=== PATIENT | female | born 1965 | race Caucasian/White ===

== ENCOUNTER → 2016-05-16 | Outpatient (CLI) | payer BC ==
[~2016-05-16] MED LIST: FLNIN NAE; SYN50 PO; [UNRECOGNIZED DRUG - REMARK]
[2016-05-16 18:13] LABS: THYROID STIMULATING HORMONE 0.105 uIu/ml (0.300-4.500)
== END | disposition home or self-care (01) ==
LOC: C.LAB1850 16:09
PROVIDERS: ATTEND Internal Medicine
DX: E03.9 Hypothyroidism, unspecified (principal)

== ENCOUNTER → 2016-11-19 | Outpatient (CLI) | payer BC ==
--- NOTE | 2016-11-20 12:47 | MAMMOGRAPHY REPORT ---
BILATERAL DIGITAL SCREENING MAMMOGRAM TOMOSYNTHESIS WITH CAD: 11/19/2016 CLINICAL HISTORY: Routine screening. Patient has no complaints. TECHNIQUE: Breast tomosynthesis in addition to standard 2D mammography was performed. Current study was also evaluated with a Computer Aided Detection (CAD) system. COMPARISON: No prior exams were available for comparison. BREAST COMPOSITION: There are scattered areas of fibroglandular density in both breasts. FINDINGS: No suspicious mass, architectural distortion or cluster of microcalcifications is seen. IMPRESSION: ACR BI-RADS CATEGORY 1: NEGATIVE There is no mammographic evidence of malignancy. A 1 year screening mammogram is recommended. The pa tient will receive written notification of the results. Approximately 10% of breast cancers are not detected with mammography. A negative mammographic report should not delay biopsy if a clinically suggestive mass is present. Juana huynh/crhistina:11/19/2016 13:50:20 [employer]: Yvette FRANKLIN(Andrew)(Karissa)(COLLIN), [facility] letter sent: Normal 1/2 BI-RADS Code: ACR BI-RADS Category 1: Negative
== END | disposition home or self-care (01) ==
LOC: C.MAMM 13:16
PROVIDERS: ATTEND Internal Medicine
DX: Z12.31 Encounter for screening mammogram for malignant neoplasm of breast (principal)

== ENCOUNTER 2023-10-06 08:46 | Observation (INO) ==
--- NOTE | 2023-09-16 10:27 | PAT Medication Instructions ---
Medication Instructions Date of Service September 16, 2023 Home Medications Medication Instructions Recorded diclofenac sodium 1 % topical gel 2 g topical QID PRN left knee pain 01/09/22 #100 grams tramadol 50 mg tablet 50 mg PO Q12H PRN Pain #60 tabs 12/23/22 levothyroxine 112 mcg capsule 112 mcg PO QAM #90 caps 06/30/23 olopatadine 0.1 % eye drops 1 drp ophthalmic (eye) BID PRN 07/16/23 Allergy Symptoms #5 mL estradiol 2 mg (7.5 mcg/24 hour) 1 vag ring vaginal Q90D #1 ea 08/12/23 vaginal ring (Estring) fluticasone propionate 50 mcg/actuation nasal spray,suspension (Flonase Allergy Relief) 2 spray intranasal QAM calcium citrate 200 mg (950 mg) tablet 400 mg PO PM cholecalciferol (vitamin D3) 25 mcg (1,000 unit) tablet (Vitamin D3) 1,000 unit PO PM multivitamin 1 tab PO DAILY econazole 1 % topical cream 1 applic topical BID PRN diclofenac sodium 1 % topical gel 2 g topical QID PRN semaglutide (weight loss) 0.5 mg/0.5 mL subcutaneous pen injector (Wegovy) 2.4 mg subcut Q7D tramadol 50 mg tablet 50 mg PO Q12H PRN levothyroxine 112 mcg capsule 112 mcg PO QAM olopatadine 0.1 % eye drops 1 drp ophthalmic (eye) BID PRN estradiol 2 mg (7.5 mcg/24 hour) vaginal ring (Estring) 1 vag ring vaginal Q90D zolpidem 5 mg tablet 5 mg PO HS PRN STOP 7 days before surgery semaglutide (weight loss) 0.5 mg/0.5 mL subcutaneous pen injector (Wegovy) 2.4 mg subcut Q7D ASK your prescriber and surgeon estradiol 2 mg (7.5 mcg/24 hour) vaginal ring (Estring) 1 vag ring vaginal Q90D STOP taking 24 hours before surgery econazole 1 % topical cream 1 applic topical BID PRN diclofenac sodium 1 % topical gel 2 g topical QID PRN DO NOT take the morning of surgery multivitamin 1 tab PO DAILY Take morning of surgery With a small sip of water, OTHERWISE NOTHING TO EAT OR DRINK AFTER MIDNIGHT: fluticasone propionate 50 mcg/actuation nasal spray,suspension (Flonase Allergy Relief) 2 spray intranasal QAM tramadol 50 mg tablet 50 mg PO Q12H PRN(if needed) olopatadine 0.1 % eye drops 1 drp ophthalmic (eye) BID PRN(if needed) levothyroxine 112 mcg capsule 112 mcg PO QAM Take evening before surgery calcium citrate 200 mg (950 mg) tablet 400 mg PO PM cholecalciferol (vitamin D3) 25 mcg (1,000 unit) tablet (Vitamin D3) 1,000 unit PO PM tramadol 50 mg tablet 50 mg PO Q12H PRN(if needed) olopatadine 0.1 % eye drops 1 drp ophthalmic (eye) BID PRN(if needed) zolpidem 5 mg tablet 5 mg PO HS PRN(if needed) Other Notes If you have any questions please call us at [phone] or [phone] or [phone] or [phone]
--- NOTE | 2023-09-22 11:13 | Anesthesiology Consultation ---
Date of Service September 22, 2023 Assessment & Plan (1) Encounter for pre-operative examination: Chart Review Chart Review: Acceptable Risk for Surgery and Patient seen in Pre Admission Testing Pt currently scheduled as 23 hours observation. If surgeon decides to change patient to Same Day Joint, patient would be acceptable risk for TKA, pending patient is motivated, has good support and surgeon's office completes [facility] Program preop requirements. - Wegovy instructions: Patient takes on (Thu/). Patient informed at PAT visit to stop 7 days prior to surgery- voiced understanding. Patient's last dose of Wegovy will be 09/23/23 or 09/24/23- will be off Wegovy x 12-13 days by DOS on 10/06/23 Per PAT appt on 09/22/23, no recent illness/disease exposures, illness related symptoms, or recent illness/disease positive tests. Will leave to surgeon's discretion if preop Covid testing needed Patient seen by PCP 09/22/23= " Patient presents today for preoperative clearance for upcoming total right knee replacement. Laboratory workup and urinalysis is unremarkable with the exception of some microscopic blood in her urine. Chest x- ray was unremarkable. EKG shows normal sinus rhythm. Vital signs are stable. The patient is medically stable as she can be for upcoming right total knee replacement." Teaching & Discussion Pre-Anesthesia Teaching/Discussion Notes: Instructed NPO after midnight before surgery,except medications with 15 cc of water. Medication instructions provided according to the PAT guidelines. History Surgery Operation Date: 10/06/23 07:00 Proposed Procedures p Right Total Knee Arthroplasty - Bhaskar Adriana Shepherd MD Height/Weight Height: 5 ft 4 in Weight: 100.3 kg Allergies Allergy/AdvReac Type Severity Reaction Status Date / Time animal dander Allergy Intermediate Sneezing Verified 09/22/23 08:57 grass pollen Allergy Intermediate Sneezing Verified 09/22/23 08:57 house dust Allergy Intermediate Sneezing Verified 09/22/23 08:57 No Known Drug Allergies Allergy Intermediate Verified 09/22/23 08:57 Medications Home Medications Medication Instructions Recorded Confirmed Last Taken fluticasone propionate 50 2 spray intranasal QAM 07/02/18 09/22/23 10/25/20 07:00 mcg/actuation nasal spray,suspension (Flonase Allergy Relief) calcium citrate 200 mg (950 mg) 400 mg PO PM 09/24/18 09/22/23 10/23/20 tablet cholecalciferol (vitamin D3) 25 1,000 unit PO PM 09/24/18 09/22/23 10/23/20 mcg (1,000 unit) tablet (Vitamin D3) multivitamin 1 tab PO DAILY 09/24/18 09/22/23 10/23/20 econazole 1 % topical cream 1 applic topical BID PRN Rash 10/19/20 09/22/23 Unknown diclofenac sodium 1 % topical gel 2 g topical QID PRN left knee pain 01/09/22 09/22/23 Unknown #100 grams semaglutide (weight loss) 0.5 2.4 mg subcut Q7D 07/10/22 09/22/23 Unknown mg/0.5 mL subcutaneous pen injector (Wegovy) tramadol 50 mg tablet 50 mg PO Q12H PRN Pain #60 tabs 12/23/22 09/22/23 Unknown levothyroxine 112 mcg capsule 112 mcg PO QAM #90 caps 06/30/23 09/22/23 Unknown olopatadine 0.1 % eye drops 1 drp ophthalmic (eye) BID PRN 07/16/23 09/22/23 Unknown Allergy Symptoms #5 mL estradiol 2 mg (7.5 mcg/24 hour) 1 vag ring vaginal Q90D #1 ea 08/12/23 09/22/23 Unknown vaginal ring (Estring) zolpidem 5 mg tablet 5 mg PO HS PRN Insomnia 09/07/23 09/22/23 Unknown Past Medical History Medical History Chronic venous insufficiency S/p GSV radiofrequency vein ablation of right leg No current issues History of COVID-19 (03/2023) mild, resolved Hx of insomnia Hyperlipemia slightly, no meds Hypothyroidism Osteoarthritis right knee Sleep apnea mouthguard Exercise / Class Metabolic Activity II 4-5 Yardwork/Stairs/Walk up hill (one flight of stairs - no chest pain or SOB ) Past Family History Family History Mother Family history of diabetes mellitus Coronary arteriosclerosis Obesity Thyroid cancer Myocardial infarction Father Lymphoma Grandmother (Maternal) Uterine cancer Ovarian cancer Grandfather (Maternal) Parkinson disease Uncle Myocardial infarction Other Malignant melanoma of skin No family history of adverse response to anesthesia Denies family history of Prostate cancer Breast cancer Colorectal cancer Past Surgical History Surgical History History of esophagogastroduodenoscopy (EGD) History of gastric bypass gastric sleeve placed 02/2016 History of tonsillectomy History of varicose vein ligation GSV radiofrequency vein ablation of right leg History of wisdom tooth extraction S/P skin biopsy benign Status post LASIK surgery of both eyes Status post myringotomy with tube placement of both ears as a child Past Anesthesia History No Hx of Anesthesia Complications and No Family Hx of Anesthesia Complications History of PONV No Hx of PONV and No Hx of Motion Sickness Social History Smoking Status: Never smoker Do You Dip or Chew Tobacco: No Hx Alcohol Use: Yes Alcohol type: wine alcohol intake frequency: holidays/special occasions only Hx Substance Use: No substance use type: does not use Review of Systems Patient denies chest pain, shortness of breath, dyspnea on exertion, reflux, cough, wheezing, palpitations. No hx of seizures, stroke, [place]. No hx of blood clots or blood transfusions Physical Exam Vital Signs VITALS BP 115/78 P 75 TEMP 97.9 SP02 98% RESP 16 Constitutional no acute distress ENMT Mouth: + small oral opening; no TMJ clicking Thyromental Distance: > or= 3.5 Finger Breadths (3.5) Mallampati Class: IV Top front six teeth- veneers Neck neck extension not limited Respiratory normal respiratory effort; no respiratory distress Auscultation: lungs clear to auscultation bilaterally; no wheezes Cardiovascular Rate/Rhythm: regular rate and regular rhythm Heart Sounds: no murmur Vessels: no carotid bruit Musculoskeletal Spine: no pain with cervical ROM Extremities: extremities normal to inspection Psychiatric Orientation: alert Lab Results Anesthesia Preop Results Results Anesthesia Widget: WBC 6.29 K/ul (4.8-10.8) 09/22/23 Hgb 13.7 g/dl (12.0-16.0) 09/22/23 Hct 42.5 % (37.0-47.0) 09/22/23 Plt 293 K/uL (130-400) 09/22/23 Na 140 mmol/L (136-145) 09/22/23 K 3.9 mmol/L (3.5-5.1) 09/22/23 Cl 104 mmol/L (98-107) 09/22/23 CO2 30 mmol/L (21-32) 09/22/23 BUN 18 mg/dl (6-23) 09/22/23 Creat 0.68 mg/dl (0.6-1.2) 09/22/23 Glucose Level 90 mg/dl (70-99(Fasting)) 09/22/23 PT 10.7 Seconds (9.0-12.0) 09/22/23 PTT 27 Seconds (21-31) 09/22/23 INR 1.0 (0.9-1.1) 09/22/23 Urine Color Yellow 09/22/23 Urine Appearance Clear (Clear) 09/22/23 Urine pH 6.5 (4.5-7.5) 09/22/23 Urine Specific [place] 1.025 (1.000-1.030) 09/22/23 Urine Protein Negative (Negative) 09/22/23 Urine Glucose (UA) Negative (Negative) 09/22/23 Urine Ketones Negative (Negative) 09/22/23 Urine Blood 1+ (Negative) H 09/22/23 Urine Nitrite Negative (Negative) 09/22/23 Urine Bilirubin Negative (Negative) 09/22/23 Urine Urobilinogen Negative (Negative) 09/22/23 Urine Leukocyte Esterase Negative (Negative) 09/22/23 Urine WBC (Auto) 0-5 /hpf (0-5) 09/22/23 Urine RBC (Auto) 11-20 /hpf (0-2) H 09/22/23 Urine Hyaline Casts (Auto) 0-2 /lpf (0-2) 09/22/23 Urine Epithelial Cells (Auto) 3-5 /hpf (0-2) H 09/22/23 Urine Bacteria (Auto) None Seen (None Seen) 09/22/23 Blood Type B Positive 09/22/23 Antibody Screen NEGATIVE 09/22/23 Testing Electrocardiogram Date: 09/22/23 Findings: + NSR @ (70bpm ) Normal EKG per cardio Chest X-Ray Date: 09/22/23 Findings: + NAD FINDINGS: PA and lateral chest radiographs are compared to study dated 05/13/2021. The cardiomediastinal silhouette is unremarkable. The lungs and pleural spaces are clear. There is no pneumothorax. The bony thorax appears intact.
[~2023-10-06 08:46] MED LIST changes: +BUPIVACAINE 0.5 % 5 MG/1 ML PF 10ML VIAL ONE; -FLNIN NAE; +LIDOCAINE 2% 2 ML VIAL/AMP(20MG/ML) INFIL ONE; +MIDAZOLAM HCL 1 MG/ML 2ML VIAL ONE; +PROPOFOL IV EMULSION 10 MG/ML 20 ML VIAL IV ONE; +ROPIVACAINE 0.5% 5 MG/ML 30 ML VIAL ONE; -SYN50 PO; -[UNRECOGNIZED DRUG - REMARK]; +fentaNYL citrate PF 100 MCG/2 ML VIAL ONE
[2023-10-06] MEDS: ACETAMINOPHEN 500 MG TAB PO SCH ×2 (09:10→14:59)
[2023-10-06] MEDS: Scopolamine 1 MG TDSY TD SCH (09:10)
[2023-10-06] MEDS: CeleBREX 200 MG CAP PO SCH (09:10)
[2023-10-06] MEDS: LR 500ML BOLUS, THEN 15ML/HR IV SCH (09:10)
[2023-10-06] MEDS: LR 60ML/HR IV SCH (09:28)
--- NOTE | 2023-10-06 09:44 | History & Physical Bridge Note ---
Date of Service October 06, 2023 History & Physical Bridge Note I have examined the patient, reviewed the History & Physical and in the interval since the performance of the History & Physical I have noted the following changes of clinical significance: no changes noted
[2023-10-06] MEDS: TRANEXAMIC ACID 1,000 MG **IV Pre-op IV SCH (10:08)
[2023-10-06] MEDS: ceFAZolin 2000MG 2,000 MG/15 ML SYR IV SCH ×2 (10:24→17:37)
[2023-10-06] MEDS ORDERED: ONDANSETRON INJ 2 MG/ML 2 ML VIAL IV PRN ×2 (10:28→12:55)
[2023-10-06] MEDS ORDERED: PROMETHAZINE HCL 6.25 MG in SODIUM CHLORIDE 0.9% 50 ML IV PRN (10:28)
[2023-10-06] MEDS ORDERED: ePHEDrine sulfate 50 MG/ML AMP IV PRN (10:28)
[2023-10-06] MEDS ORDERED: HYDROmorphone INJ 2 MG/ML SYR/VIAL IV PRN (10:28)
[2023-10-06] MEDS ORDERED: ATROPINE SULFATE 0.1 MG/ML 10ML SYR IV PRN (10:28)
[2023-10-06] MEDS ORDERED: fentaNYL citrate PF 100 MCG/2 ML VIAL IV PRN (10:28)
[2023-10-06] MEDS ORDERED: PROPOFOL IV EMULSION 10 MG/ML 20 ML VIAL IV ONE ×3 (10:43→12:18)
--- OUTSIDE RECORDS SUMMARY | 2023-10-06 10:52 | External Medical Summary | Continuity of Care Document ---
Author Name Unknown Organization [place] [id number] Address [address] [place] [id number] Care Team Providers Care Streaming Media Specialist Name Role Phone Rodrigo Primary Care Physician [phone] Encounter [facility] [id number] Date(s): 09/22/23 - 09/22/23 [facility] [address] [place] [id number] [facility] [address] [place] [address] Encounter Diagnosis DJD (degenerative joint disease) of knee(Discharge Diagnosis) - 09/22/23 Discharge Disposition: Home or Self Care Attending Physician: MIHAI Baez, Farideh Morales Referring Physician: MD Cora, Bhaskar A Allergies, Adverse Reactions, Alerts No Known Medication Allergies Substance Criticality Severity Reaction Reaction Severity Status Animal dander Active Allergy Not found in Search 1 Active 1seasonal allergies- superintendent transmission jv Medications B-12 Start: 07/08/23 2:05:00 PM EDT, b 12 injection every 3 months had today Start Date: 07/08/23 Status: Ordered calcium citrate Start: 02/26/21 11:18:00 AM EST, PO, Daily Start Date: 02/26/21 Status: Ordered Euflexxa 10 mg/mL intra-articular solution Start: 02/12/23 10:07:00 AM EDT, 20 mg =, intra-articular, q7days, Disp# 12 mL, Refills: 0, 6 syringes for B/L knees. Please ship to physician's office: [address] [facility]. [address] [address], Note to Pharmacy: B/L KNEE DJD M17.0, Pharmacy: [facility] Start Date: 02/12/23 Stop Date: 03/05/23 Status: Ordered Flintstones Complete oral tablet, chewable Start: 02/26/21 11:18:00 AM EST, 1 tab, PO, Daily Start Date: 02/26/21 Status: Ordered Flonase 50 mcg/inh nasal spray Start: 02/26/21 11:18:00 AM EST, 2 spray, each nostril, Daily Start Date: 02/26/21 Status: Ordered levothyroxine 112 mcg (0.112 mg) oral tablet Start: 02/26/21 11:17:00 AM EST, 1 tab, PO, Daily Start Date: 02/26/21 Status: Ordered traMADol Start: 02/26/21 11:17:00 AM EST, PO, as needed Start Date: 02/26/21 Status: Ordered Wegovy (1 mg dose) subcutaneous solution Start: 07/17/22 3:57:00 PM EDT Start Date: 07/17/22 Status: Ordered Mental Status 09/22/23 Barriers to Learning one year None evide nt Mandatory Health Literacy Documentation Yes Health Literacy Communication Barriers N ever Primary Language Liberian Problem List Condition Confirmation Course Effective Dates Status H ealth Status Informant Allergic rhinitis Confirmed Active Anesthesia complication 1 Confirmed Active Thyroid disease Confirmed Active Hypothyroidism Confirmed Active Knee DJD 2 Confirmed Active Knee pain 3 Confirmed Active Morbid Obesity Confirmed Active Right knee pain Confirmed Active Pes anserinus bursitis of left knee Confirmed Active Plantar fasciitis Confirmed Active Apnea, sleep Confirmed Active Weight disorder Confirmed Active 1family history 2right 3right Diagnosis Diagnosis Type Effective Dates Health Status Cl inical Service Informant DJD (degenerative joint disease) of knee Discharge Diagnosis 09/22/23 Procedures Procedure Date Related Diagnosis Body Site Status LASIK 2008 Completed Tooth extraction 1 1988 Comple nichelle Tonsillectomy 2 1971 Completed Gastric sleeve Completed 1wisdom teeth 2age 6 Vital Signs Most recent to oldest [Reference Range]: 1 Height 162.0 cm (09/22/23 10:03 AM) Patient Weight 99.9 kg (09/22/23 10:03 AM) Body Mass Index 38.07 kg/m2 (09/22/23 10:03 AM) Temperature [36.5-37.9 DegC] 36.1 DegC *LOW* (09/22/23 10:03 AM) Respiratory Rate 20 br/min (09/22/23 10:03 AM) Blood Pressure 110/70mmHg (09/22/23 10:03 AM) Cuff Pulse Pressure 40 mmHg (09/22/23 10:03 AM) Social History Social History Type Response Smoking Status Never smoked cigaret sharon Sex Female Pre-OP H & P * MIHAI Baez, Farideh Morales: PERFORM Event Display: Pre-OP H & P Authored Date: [id number] Name:MASON SIMPSON Patient Number:[id number] :1965 Date of Service:09/22/2023 Chief Complaint pre op History of Present Illness Beatriz Peguero presents today forpreoperative history and physical. She is scheduled for right total knee arthroplasty on October 06, [address] Shepherd. She hashad many years worth of right knee pain. She states that she has pain on a daily basis. She haspain at rest and at night. Her pain is worse with activity. She has taken vgdl-xkp-[id number] anti-inflammatories as well as Tylenol without any significant long-lasting relief. She has had cortisone injection with her last 1 being in December 2022. She also has had completed viscosupplementation series in March 2023. 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 She has pain with going up and down stairs. She lives by herself and has a two-story home. She feels that she would like to go home to an inpatient rehab at time of discharge from the hospital. Today her pain is 0 out of 10 on the right knee. She also has left knee pain. She uses no assistive device for ambulation. Due to her failure of conservative treatment andprogressively worsening symptoms, she would like to proceed with an elective right total knee arthroplasty. Review of Systems Denies any recent cough, cold, fevers, chills or flulike symptoms. She denies any lightheadedness, dizziness, syncopal episodes, headaches, migraines or seizures. Denies any bleeding or clotting disorders or history of DVT or pulmonary embolism. Denies any recent hospitalizations. Denies any history of metal sensitivity, latex allergy or MRSA. Denies any shortness of breath or chest pain. Denies abdominal pain, heartburn, indigestion, nausea, vomiting, diarrhea or constipation. Denies any urinary tract infections. Denies any hearing or vision changes. Denies any dental problems. Physical Exam Vitals & Measurements T:36.1C RR:20 BP:110/70 SpO2:98% HT:162.0cm WT:99.9kg WT:99.900kg(Dosing) BMI:38.07 BMI:38.07 kg/m2 Vitals:Last Updated 09/22/23 10:03 Date Temp BP Location Pulse RR SpO2 Pain 09/22/23 36.1 110/70 20 98 09/22/23 0 07/08/23 3 Height and Weight:Last Updated 09/22/23 10:03 Date BMI Wt(kg) Wt(lb) Method Ht(cm) (ft-in) Method 09/22/23 38.07 99.9 220 Standing Scale 162.0 5-4 07/02/23 39.9 106 233 Standing Scale 163 5-4 02/26/21 42.1 116 255 Scale 166 5-5 General:Well-dressed, well-nourished. Normal mood and affect. Alert and oriented x3. HEENT:Head: Atraumatic, normocephalic. Eyes: Extraocular movements intact, pupils equal round and reactive to light, sclera normal. Ears: Ears grossly normal, TMs are clear normal light reflex.Nose: Nares are patent bilaterally. Throat: Oropharynx clear mucous membranes moist good dentition uvula midline. Neck:Supple, no lymphadenopathy, nontender palpation, full range of motion. Cardiac:Regular rate and rhythm, normal S1, S2. No murmurs, rubs or gallops appreciated. Lungs:Clear to auscultation bilaterally. No adventitious sounds. No accessory muscle use. Abdomen:Soft, nontender, nondistended, normal bowel sounds heard in all 4 quadrants. Extremities: Focusing on the patient'sbilateral lower extremity: 2+ DP pulse Sensation to light touch is intact Motor to the gastroc soleus, tibialis anterior, and EHL is 5/5. Able to perform straight leg raise. RIGHT: - Janice's + Crepitus Ligamentous examination exhibits: Stable Sade 0 mm anterior translation and firm endpoint Posterior drawer stable Varus stress at 0 and 30 stable Valgus stress at 0 and 30 stable Range of motion 0 to 110 LEFT: + Medialjoint line tenderness. -Janice's Ligamentous examination exhibits: Stable Sade 0 mm anterior translation and firm endpoint Posterior drawer stable Varus stress at 0 and 30 stable Valgus stress at 0 and 30 stable Range of motion 0 to 110 Diagnostic Results I reviewed x-rays done previously which showsno acute fracture or dislocation.There is significant loss of joint space with now near efbz-vw-aqlq, sclerosis, subchondral cyst, and marginal osteophytes. 7 degrees varus alignment on the right 3 degrees varus alignment on the left. Assessment/Plan 1.DJD (degenerative joint disease) of knee Patient is scheduled for right total knee arthroplasty with Dr. Shepherd on October 06, 2023. Risk and complications of the procedure were explained to the patient and include but are not limited to infection, pain, bleeding, scarring, nerve or blood vessel damage, wound problems, weakness, stiffness, incomplete relief of symptoms, hardware failure, hardware loosening, wear, fracture, tendon or ligament injury, blood clots, embolisms, heart attack, stroke and . All questions were answered and informed consent was obtained today. She will preadmission testing later this morning which she will obtain a preoperative CBC, BMP, PT, PTT, type and screen, urinalysis and culture if indicated, EKG, chest x-ray. She will also have preoperative medical clearance from her family physician. Postoperatively she will be given pain medication at the time of discharge from the hospital. She would like to go to inpatient rehab from the hospital which we will try to get approved but if not she will need to go home with home health and also have someone stay with her for the first week or so after surgery. She has a walker that she is able to borrow from her friend. If she wishes to get her own walker she will call and we can prescribe this and send a prescription to DME supplier. We will use Eliquis 2.5 mg p.o. twice daily for 6 weeks after surgery for DVT prophylaxis. She hasher appointment to follow-up on postoperative day 3 for a Silverlon dressing if she does not go to an inpatient rehab. She also will follow-up with one of the PAs is scheduled for a 2-week follow-up and Zipline removal. She understands and agrees with the plan. All questions were answered. Postoperative course was discussed. She was instructed on the usage of the CHG wipes. She knows to call with any further problems, questions or concerns. All questions were answered today. This chart was completed utilizing [employer] voice recognition software. Grammatical errors, random word insertions, pronoun errors, and in complete sentences are an occasional consequence of the system. Any questions or concerns about the content, text, or information contained within the body of this dictation should be addressed directly to the provider for clarification. Problem List/Past Medical History Ongoing Allergic rhinitis Anesthesia complication Apnea, sleep Hypothyroidism Knee DJD Morbid Obesity Pes anserinus bursitis of left knee Plantar fasciitis Thyroid disease Weight disorder Procedure/Surgical History LASIK| Service Date: 2008Tooth extraction| Service Date: 1988Tonsillectomy| Service Date: 1971Gastric sleeve Medications Home calcium citrate, PO, Daily cyanocobalamin(B-12) fluticasone nasal(Flonase 50 mcg/inh nasal spray), 2 spray, each nostril, Daily levothyroxine(levothyroxine 112 mcg (0.112 mg) oral tablet), 112 mcg= 1 tab, PO, Daily multivitamin with minerals(Flintstones Complete oral tablet, chewable), 1 tab, PO, Daily semaglutide(Wegovy (1 mg dose) subcutaneous solution) sodium hyaluronate(Euflexxa 10 mg/mL intra-articular solution), 20 mg, intra- articular, q7days traMADol, PO Allergies Allergy Not found in Search Animal dander No Known Medication Allergies Social History Smoking Status Never smoked cigarettes Alcohol - Low Risk - Comments: 1 per week Substance Abuse - Denies Substance Abuse Tobacco - Denies Tobacco Use Family History Cancer: Unknown. Diabetes: Unknown. Lymphoma: Father. Obesity: Mother, Father and Sister. Thyroid cancer: Mother. Electronic Signature on File Electronically Reviewed/Signed by: Farideh Baez PA-C Author Signature Dt/Tm:09/22/2023 04:16PM Division of Sports Medicine Electronically Reviewed/Signed by: Bhaskar Shepherd MD Cosigner Signature Dt/Tm: 09/23/2023 08:25 AM [facility] Sales Process Manager Department of Orthopaedics and Rehabilitation [facility] [address], [place] [address] [facility] Patient Care team information Care Team Personnel Name: Pro, MD, Rodrigo W Position: Referring DIRECT Member Role: Primary Care Provider Address: Address: [facility] [address] [facility] [address] [place] [id number] [place] Name: Marianne, PhD, Dick Position: Physician - General Surg Psych Member Role: Lifetime Relationship Address: Address: [address] [place] [id number] [place] Care Team Related Persons Name: JOVAN SIMPSON Address: home No Address Provided"
--- OUTSIDE RECORDS SUMMARY | 2023-10-06 10:52 | External Medical Summary | Continuity of Care Document ---
Author Name Unknown Organization [place] [id number] Address [address] [place] [phone] Care Team Providers Care Drawing In Machine Tender Helper Name Role Phone Rodrigo Primary Care Physician [phone] Encounter [facility] [id number] Date(s): 09/22/23 - 09/22/23 [facility] [address] [place] [id number] [facility] [address] [place] [id number] Encounter Diagnosis DJD (degenerative joint disease) of knee(Discharge Diagnosis) - 09/22/23 Discharge Disposition: Home or Self Care Attending Physician: MIHAI Baez, Farideh Morales Referring Physician: MD Cora, Bhaskar A Allergies, Adverse Reactions, Alerts No Known Medication Allergies Substance Criticality Severity Reaction Reaction Severity Status Animal dander Active Allergy Not found in Search 1 Active 1seasonal allergies- exploration driller jv Medications B-12 Start: 07/08/23 2:05:00 PM [...] knees. Please ship to physician's office: [address] [facility]. [address] [address], Note to Pharmacy: B/L KNEE DJD M17.0, Pharmacy: [facility] Start Date: 02/12/23 Stop Date: 03/05/23 Status: [...] Literacy Communication Barriers N ever Primary Language Niuean Problem List Condition Confirmation Course Effective Dates [...] Display: Pre-OP H & P Authored Date: [id number] Name:MASON SIMPSON Patient Number:[id number] :1965 Date of Service:09/22/2023 Chief Complaint pre op History of Present Illness Beatriz ePguero presents today forpreoperative history and physical. She is scheduled for right total knee arthroplasty on October 06, [address] Shepherd. She hashad many years worth of right knee pain. She states that she has pain on a daily basis. She haspain at rest and at night. Her pain is worse with activity. She has taken wofl-xln-bnkklcc anti-inflammatories as well as Tylenol without any [...] loss of joint space with now near qgzp-wj-rpre, sclerosis, subchondral cyst, and marginal osteophytes. 7 [...] answered today. This chart was completed utilizing [employer] voice recognition software. Grammatical errors, random word [...] MD Cosigner Signature Dt/Tm: 09/23/2023 08:25 AM [facility] D[facility] [place] Department of Orthopaedics and Rehabilitation [facility] [address], [place] [address] [facility] Patient Care team information Care Team Personnel Name: Pro, MD, Rodrigo W Position: Referring DIRECT Member Role: Primary Care Provider Address: Address: [facility] [address] [facility] [address] [place] [address] [place] Name: Marianne, PhD, Dick Position: Physician - General Surg Psych Member Role: Lifetime Relationship Address: Address: [address] [place] [address] [place] Care Team Related Persons Name: JOVAN SIMPSON Address: home No Address Provided"
[2023-10-06] MEDS ORDERED: ONDANSETRON INJ 2 MG/ML 2 ML VIAL ONE (11:51)
[2023-10-06] MEDS ORDERED: DEXAMETHASONE SOD INJ 4 MG/ML VIAL ONE (11:51)
[2023-10-06] MEDS: ROPIV 0.5% 246mg, Ketorolac 30mg, EPINEPHrine 0.5mg in NSS INFIL SCH (11:52)
[2023-10-06] MEDS: TRANEXAMIC ACID 1,000 MG **IV Intra-op IV SCH (12:08)
--- NOTE | 2023-10-06 12:31 | Post Operative Brief Note ---
Immediate Post Op Note Date of Surgery October 06, 2023 Pre & Post Diagnosis Operation Date: 10/06/23 10:20 Pre-Op Diagnosis: Right Knee Osteoarthritis Post-Op Diagnosis: Right Knee Osteoarthritis I identified the patient and participated in the time-out.: Yes Procedure Operation Date: 10/06/23 10:20 Actual Procedures p Right Total Knee Arthroplasty(Right) - Bhaskar Shepherd MD Surgeon Bhaskar Shepherd MD Terminal Operations Supervisor MIRIAN Dumas PA-C (No fellow avail) Estimated Blood Loss 50 Findings Consistent with Post-Op Diagnosis Fluids 1300 cc Specimens Right knee contents Anesthesia Type MAC Spinal Regional Complications none
--- NOTE | 2023-10-06 12:32 | Operative Report ---
Post Operative Report Pre & Post Diagnosis Operation Date: 10/06/23 10:20 Pre-Op Diagnosis: Right Knee Osteoarthritis Post-Op Diagnosis: Right Knee Osteoarthritis I identified the patient and participated in the time-out.: Yes Procedure Operation Date: 10/06/23 10:20 Actual Procedures p Right Total knee replacement, imageless computer assisted navigation (Right) - Bhaskar Shepherd MD Surgeon Bhaskar Shepherd MD Wafer Production Lead Worker MIRIAN Dumas PA-C (No fellow avail) Estimated Blood Loss 50 Findings See Below Examined Under Anesthesia: ROM -- There was 5 degrees to 120 degrees of flexion Ligamentous examination -- revealed stable Sade, posterior drawer, varus and valgus stress at 5 and 30 degrees. Outerbridge Grade IV changes of patellofemoral & medial compartments, grade III changes lateral compartment. Large osteophytes. Fluids 1300 cc Specimens Right knee contents Anesthesia Type MAC Spinal Regional Complications none Indications This is a 57-year-old female who has clinical and radiographic findings consistent with osteoarthritis of the a right knee. I recommended that a right total knee replacement be performed. The patient understands the risks of surgery, which include but not limited to: bleeding, infection, re-operation, damage to nerves and arteries, continued knee pain, knee stiffness, DVT, and . The patient understands all of these instructions and explanations, all of his questions have been satisfactorily addressed and the patient has elected to proceed. Informed consent was signed. Description of Procedure IMPLANTS: 1. Femur: Triathlon #5 Right PS. 2. Tibia: Triathlon #4 Stevinson. 3. Insert: Triathlon #4 x 13 mm PS X3 poly. 4. Patella: Triathlon A32 x 10 mm X3 poly. 5.Palacos cement. MIRIAN Dumas PA-C is assisting with positioning, retracting, and closure due to fellow not available. Procedure: The patient was taken to the Operating Room and placed in the supine position after spinal and adductor canal nerve block was administered. My initials and a multidisciplinary time-out were used to identify the right leg as the correct operative limb. A tourniquet was placed high in the thigh. Prior to the incision, 2 grams of intravenous Ancef were given. The right leg was then prepped and draped in a standard sterile fashion. An Esmarch was used to exsanguinate the leg and the tourniquet was inflated to 250 mmHg. The planned mid-line 20 cm incision was created exposing the extensor mechanism. The medial parapatellar arthrotomy was made and the patella was everted. The patella was addressed first. It was prepared by reaming from 24 mm down to 14 mm. An A32 button was found to fit best. The peg holes were made in the standard fashion. The femur was addressed next and using computer assisted OrthoAlign with 3 degrees of flexion and 0 degrees of valgus, removing 10 mm in the standard fashion for the distal cut. The cut was made and the 4-in-1 cutting block for a size 5 femur was placed. These cuts and the cuts to place the box were made in the standard fashion. Our attention was then drawn to the tibia cut with using imageless computer assisted OrthoAlign, taking 2 mm from the medial low side. There was sufficient extension and flexion gap to fit a 13 mm spacer. A #4 Tibial baseplate fit well. A trial with a 13 mm spacer showed excellent stability in both flexion and extension, with good ligament balance, and thumbs free patellar tracking. Range of motion of 0-125 degrees. The tibial baseplate was prepped for the keel and stem. All components were removed.90 ml of total knee cocktail were injected into the soft tissues and periosteum. All surfaces were copiously irrigated prior to placement of the components. The femoral component followed by Tibial baseplate were cemented in place and a 13mm trial placed. Next, the patellar button was placed using the same cement. Once the cement had cured, the range of motion and stability were unchanged. The 13 mm X3 poly was placed. Again, the range of motion and stability were unchanged. The tourniquet was deflated. Hemostasis was obtained. The extensor mechanism was closed with 1-0 Vicryl and 0 Stratafix with the knee bent approximately 60 degrees in a standard fashion. The peritenon and deep fascia was closed with 2-0 Vicryl. The subcutaneous layer was closed with 3-0 Vicryl. The skin was closed with Zipline and shield. The limb was cleaned and dried. 4x4 dressing was placed over top followed by ABDs, sterile Webril, and a foot to thigh Marcus bandage. The patient was then transferred to the Recovery Room in stable condition. The sponge and needle counts were correct. POST-OP INSTRUCTIONS: The patient will be WBAT. The patient will be admitted to the hospital. Complete 24-hour course antibiotics. Labs will be obtained during the stay. DVT prophylaxis will included Eliquis2.5 mg BID for 6 weeks, TEDs, and mechanical foot pumps. The dressing will be changed postop day #2-3 and covered with a Silverlon dressing. I attest to the content of the Intraoperative Record and any orders documented therein. Any exceptions are noted below.
--- NOTE | 2023-10-06 12:54 | Operative Report ---
Post Operative Report Pre & Post Diagnosis Operation Date: 10/06/23 10:20 Pre-Op Diagnosis: Right Knee Osteoarthritis Post-Op Diagnosis: Right Knee Osteoarthritis I identified the patient and participated in the time-out.: Yes Procedure Operation Date: 10/06/23 10:20 Actual Procedures p Right Total Knee Arthroplasty(Right) - Bhaskar Shepherd MD Surgeon Bhaskar Shepherd MD Spin Table Operator MIRIAN Dumas PA-C (No fellow avail) Estimated Blood Loss 50 Findings Consistent with Post-Op Diagnosis Specimens Right knee bone and soft tissue Description of Procedure I was present during the entire case assisting with positioning, prepping, draping, wound retraction, wound closure, and dressing application. No fellow present. Please see Dr. Shepherd procedure note for specifics of the case. I attest to the content of the Intraoperative Record and any orders documented therein. Any exceptions are noted below.
[2023-10-06] MEDS ORDERED: MAGNESIUM HYDROXIDE SUSP 30 ML UDC PO PRN (12:55)
[2023-10-06] MEDS ORDERED: bisacodyL 10 MG SUPP PR PRN (12:55)
[2023-10-06] MEDS ORDERED: HYDROmorphone INJ 0.5 MG/0.5 ML SYR IV PRN (12:55)
[2023-10-06] MEDS ORDERED: traMADol HCL 50 MG TABLET PO PRN ×2 (12:55→12:58)
[2023-10-06] MEDS ORDERED: ALUMINUM/MAGNESIUM SUSP 30 ML UDC PO PRN (12:55)
[2023-10-06] MEDS ORDERED: diphenhydrAMINE 50 MG/ML VIAL IV PRN (12:55)
[2023-10-06] MEDS ORDERED: NALOXONE HCL 0.4 MG/1 ML VIAL/CARP IV PRN (12:55)
[2023-10-06] MEDS ORDERED: METOCLOPRAMIDE HCL INJ 5 MG/ML 2 ML VIAL IV PRN (12:55)
[2023-10-06] MEDS ORDERED: ZOLPIDEM TARTRATE 5 MG TAB PO PRN (12:58)
[2023-10-06] MEDS ORDERED: ECONAZOLE NITRATE 1% CRM 15 GM TUBE TOP PRN (12:58)
--- NOTE | 2023-10-06 13:39 | Anesthesiology Progress Note ---
Date of Service October 06, 2023 Anesthesia Post Procedure Vital Signs Vital Signs: Temp Pulse Pulse Resp BP BP Pulse Ox 10/06/23 13:35 36.4 C L 72 17 115/72 95 10/06/23 13:25 70 16 114/69 95 10/06/23 13:15 69 15 112/68 96 10/06/23 13:05 70 19 114/69 96 10/06/23 12:54 36.3 C L 74 19 106/72 98 10/06/23 09:02 36.6 C 75 20 126/76 98 O2 Del Method 10/06/23 13:35 Room Air 10/06/23 13:25 Room Air 10/06/23 13:15 Room Air 10/06/23 13:05 Room Air 10/06/23 12:54 Room Air 10/06/23 09:02 Room Air Transfer of Care Handoff Completed per policy Notes Mental Status: alert / awake / arousable and participated in evaluation Patient Amnestic to Procedure: Yes Nausea / Vomiting: adequately controlled Pain: adequately controlled Airway Patency, RR, SpO2: stable & adequate BP & HR: stable & adequate Hydration State: stable & adequate Anesthetic Complications: no major complications apparent and Pt Satisfied with anesthetic care
--- NOTE | 2023-10-06 13:42 | XRay Report ---
XR knee RT 1 or 2V routine CLINICAL HISTORY: Surgical Post Op TECHNIQUE: 2 views of the right knee were obtained. Comparison: Comparison is made to knee radiographs 11/11/2022 FINDINGS: Patient is status post total knee arthroplasty with expected postsurgical changes including soft tiss ue swelling and subcutaneous emphysema. No periarticular lucency or hardware fracture is seen. IMPRESSION: Expected postoperative appearance status post placement of total knee arthroplasty. ACT 112: Negative or not required by law. Electronically signed by: Luis Alfredo Bee M.D. 10/06/2023 1:41 PM
[2023-10-06] MEDS: ORTHO JOINT ANESTHETIC ONE (14:24)
[2023-10-06] MEDS: SODIUM CHLORIDE 0.9% 1,000 ML IV SCH (15:02)
[2023-10-06] MEDS: APIXABAN 2.5 MG TAB PO SCH (15:36)
--- NOTE | 2023-10-06 15:53 | Orthopedic Progress Note ---
Date of Service October 06, 2023 Assessment & Plan (1) Osteoarthritis of knee: Plan: POD #0 s/p R TKA, doing as well as expected. Resume diet. WBAT with walker. OOB to chair. Continue pain control. Check labs tomorrow. DVT prophylaxis: TEDs 3 weeks, foot pumps while in hospital, Eliquis 2.5 mg BID for 6 weeks. PT/OT. D/C planning. Plan on changing dressing to Silverlon POD 2-3. Present on Admission?: Yes Admission and Anticipated Discharge Date Admission Date: October 06, 2023 Subjective Patient states that, "It's weird to not feel my leg". Physical Exam Physical Exam: RLE: BCR < 2 sec. Sensation to light touch diminished distally. Wiggling toes. Calf soft and non-tender. Dressing is clean, dry, intact. Results & Data Vital Signs (Past 12 Hours) Vital Signs Temp Pulse Pulse Resp BP BP Pulse Ox 10/06/23 15:32 36.5 C 74 16 111/74 97 10/06/23 14:58 36.9 C 75 18 111/77 97 10/06/23 14:30 36.5 C 70 18 115/79 95 10/06/23 14:20 77 18 128/71 95 10/06/23 14:05 76 16 109/71 97 10/06/23 13:50 74 19 109/70 95 10/06/23 13:35 36.4 C L 72 17 115/72 95 10/06/23 13:25 70 16 114/69 95 10/06/23 13:15 69 15 112/68 96 10/06/23 13:05 70 19 114/69 96 10/06/23 12:54 36.3 C L 74 19 106/72 98 10/06/23 09:02 36.6 C 75 20 126/76 98 O2 Del Method 10/06/23 15:32 Room Air 10/06/23 14:58 Room Air 10/06/23 14:30 Room Air 10/06/23 14:20 Room Air 10/06/23 14:05 Room Air 10/06/23 13:50 Room Air 10/06/23 13:35 Room Air 10/06/23 13:25 Room Air 10/06/23 13:15 Room Air 10/06/23 13:05 Room Air 10/06/23 12:54 Room Air 10/06/23 09:02 Room Air Diagnostic Findings Impressions Knee X-Ray 10/06/23 12:55 XR knee RT 1 or 2V routine CLINICAL HISTORY: Surgical Post Op TECHNIQUE: 2 views of the right knee were obtained. Comparison: Comparison is made to knee radiographs 11/11/2022 FINDINGS: Patient is status post total knee arthroplasty with expected postsurgical changes including soft tissue swelling and subcutaneous emphysema. No periarticular lucency or hardware fracture is seen. IMPRESSION: Expected postoperative appearance status post placement of total knee arthroplasty. ACT 112: Negative or not required by law. Electronically signed by: Luis Alfredo Bee M.D. 10/06/2023 1:41 PM
[2023-10-06] MEDS: NON-FORMULARY MEDICATION (Estradiol [Estring] 2 mg (7.5 mcg /24 hour) ring) PV SCH (16:36)
[2023-10-06] MEDS: [UNRECOGNIZED DRUG - OTHER] SQ SCH (16:36)
[2023-10-06] MEDS: SEMAGLUTIDE 0.5 MG/0.5 ML SQ SCH (16:36)
[2023-10-06] MEDS: KETOROLAC TROMETHAMINE 15 MG/ML VIAL IV SCH (17:36)
[2023-10-06] MEDS: Scopolamine CHECK PATCH PLACEMENT SCH (17:37)
[2023-10-06] MEDS: oxyCODONE HCL IR 5 MG TAB (IMMEDIATE RELEASE) PO PRN (18:10)
[2023-10-06] MEDS ORDERED: CALCIUM CITRATE PO SCH (21:00)
[2023-10-06] MEDS: DOCUSATE SODIUM 100 MG CAP PO SCH (21:35)
[2023-10-06] MEDS: CHOLECALCIFEROL 25 MCG (1000 UNITS) TAB PO SCH (21:36)
[2023-10-06] MEDS: SENNA 8.6 MG TAB PO SCH (21:37)
[2023-10-07] MEDS: LEVOTHYROXINE SODIUM 112 MCG TABLET PO SCH (05:27)
[2023-10-07] MEDS ORDERED: APIXABAN 2.5 MG TAB PO SCH (08:00)
--- NOTE | 2023-10-07 08:11 | Orthopedic Progress Note ---
Date of Service October 07, 2023 Assessment & Plan (1) Osteoarthritis of knee: Plan: POD #1 s/p R TKA, doing as well as expected. Resume diet. WBAT with walker. OOB to chair. Continue pain control. Check labs, still pending. DVT prophylaxis: TEDs 3 weeks, foot pumps while in hospital, Eliquis 2.5 mg BID for 6 weeks. PT/OT. D/C planning for home if passes PT. Plan on changing dressing to Silverlon POD 2-3. Admission and Anticipated Discharge Date Admission Date: October 06, 2023 Subjective Feeling as good as can be expected. Feeling in her leg has returned. Has been able to get up and go to the bathroom. Physical Exam Physical Exam: RLE: BCR < 2 sec. Sensation to light touch intact distally. Wiggling toes. Calf soft and non-tender. Dressing is clean, dry, intact. Results & Data Vital Signs (Past 12 Hours) Vital Signs Temp Pulse Resp BP Pulse Ox O2 Del Method 10/07/23 07:26 Room Air 10/07/23 07:17 36.6 C 68 18 108/74 99 Room Air 10/07/23 03:29 36.6 C 76 16 106/72 97 Room Air 10/06/23 22:48 36.7 C 81 16 116/75 96 Room Air Laboratory Results 10/07/23 Range/Units 07:58 WBC Pending RBC Pending Hgb Pending Hct Pending MCV Pending MCH Pending MCHC Pending Plt Count Pending Sodium Pending Potassium Pending Chloride Pending Carbon Dioxide Pending Anion Gap Pending BUN Pending Creatinine Pending Est Cr Clr Drug Dosing Pending Est GFR ( Amer) Pending Est GFR (Non-Af Amer) Pending BUN/Creatinine Ratio Pending Glucose Pending Calcium Pending
[2023-10-07 08:16] LABS: Hematocrit (blood only) 36.4 % (37.0-47.0); Hemoglobin 11.8 g/dl (12.0-16.0); Mean Corpuscular Hemoglobin 29.6 pg (25.0-34.0); Mean Corpuscular Hgb Conc 32.4 g/dL (32.0-36.0); Mean Corpuscular Volume 91.5 fL (80.0-100.0); Mean Platelet Volume 10.3 fL (9.4-12.4); Platelet Count 241 K/uL (130-400); RDW Standard Deviation 43.6 fL (36.4-46.3); Red Blood Count 3.98 M/uL (4.20-5.40); White Blood Count 9.75 K/ul (4.8-10.8)
[2023-10-07 08:38] LABS: BUN Creatinine Ratio 22.5 (10-20); Calcium 8.7 mg/dl (8.6-10.3); Creatinine Clr Calc Pharmacy 101.5 ml/min; Est GFR (African American) 110.4 ml/min; Est GFR (Non-African American) 95.2 ml/min
[2023-10-07] MEDS ORDERED: ASPIRIN 81 MG ECTAB PO SCH (09:00)
[2023-10-07] MEDS ORDERED: MULTIVITAMIN TAB PO SCH (09:00)
[2023-10-07] MEDS: FLUTICASONE PROPIONATE NA SPR 16 GM BTL NAE SCH (09:06)
[2023-10-07] MEDS: dexAMETHasone 4 MG TAB PO SCH (09:08)
[2023-10-07] MEDS: MULTIVITAMIN TAB PO SCH (09:09)
--- NOTE | 2023-10-07 11:57 | Discharge Summary ---
Date of Service October 07, 2023 Discharge Data Procedures Performed Operation Date: 10/06/23 10:20 Actual Procedures p Right Total Knee Arthroplasty(Right) - Bhaskar Shepherd MD Hospital Course (1) Osteoarthritis of knee: Patient was kept in observation at [facility] after undergoing an elective right total knee arthroplasty with Dr. Shepherd on October 06, 2023. Her surgery was performed with spinal anesthesia and a peripheral nerve block. She tolerated the procedure well without any intraoperative complications. Postoperatively in the recovery room an x-ray of her right knee was obtained and showed no evidence of hardware failure or complication. No evidence of fracture. Findings consistent with total knee arthroplasty. She was allowed out of bed, weight-bear as tolerated on her right lower extremity with the assistance of a walker. She was given oxycodone, Tylenol, Toradol and IV Dilaudid to use as needed for postoperative pain. She her home medications were continued. She was given a regular diet. Her vital signs remained stable during her inpatient stay. She did not develop any postoperative nausea, vomiting, lightheadedness or dizziness, chest pain or shortness of breath. Physical therapy and Occupational Therapy consults were placed. She was seen on postoperative day 1 and was deemed safe for discharge to her home. Her postoperative labs were within normal limits and expected post total knee arthroplasty. She was given Eliquis 2.5 mg p.o. twice daily for 6 weeks postoperative for DVT prophylaxis along with knee-high ANJEL stockings for 3 weeks and AV impulse boots while in house. Discharge instructions were reviewed. Postoperative appointments have been made. She understands and agrees with the plan. She was discharged to her home in stable condition on October 07, 2023.
== END 2023-10-07 10:40 | disposition home health service (06) ==
LOC: 3E 08:46 → ASU 08:46